=== PATIENT | male | born 1980 | race Two or more races ===

== ENCOUNTER 2022-07-27 09:20 | Outpatient (CLI) | payer OTHER | END 2022-07-27 10:00 | disposition home or self-care (01) | LOC: ASH CLINIC 09:20 | PROVIDERS: ATTEND General Practice | DX: U07.1 COVID-19 (principal) ==

== ENCOUNTER 2022-10-29 11:45 | Inpatient (IN) | payer OTHER ==
[~2022-10-29] VITALS: Ht 170.2 cm; Wt 106.6 kg
[2022-10-29] MEDS ORDERED: RESTORIL30 M1 (12:21)
--- NOTE | 2022-10-29 12:28 | NUR ---
PACIENTE REFIEERE QUE TIENE DOLOR EN TESTICULO LISA DESDE GALILEO. RECIBIO ANTIBIOTICO EN OTRA INSTITUCION.
--- NOTE | 2022-10-29 13:25 | NUR ---
PACIENTE ALERTA Y ORIENTADO EVALUADO POR DRA ULLOA QUIEN ORDENA UMAIR DE MUESTRAS DE LABORATORIO, EXAMEN TESTICULAR, MEDICAMENTO PO. SE ORIENTA PACIENTE SOBRE TRATAMIENTO SE CARLOS MUESTRAS DE SUNSHINE BAJO MEDIDAS ASEPTICAS, SE ADMINISTRAN MEDICAMENTOS EDDA ORDEN MEDICA, SE ASISTE A DRA ULLOA EN EXAMEN TESTICULAR. SE NOTIFICA A PERSONAL DE CENTRO DE IMAGENES SOBRE SONOGRAMA TESTICULAR. SE MANTIENE PACIENTE EN FAST TRACK.
[2022-10-31] MEDS ORDERED: EFFEXOR XR75 MG (11:07)
[2022-10-31] MEDS ORDERED: BUDESONIDE0.5 MG/21 (11:07)
[2022-10-31] MEDS ORDERED: TRAZODONE HCL100 MG (11:07)
[2022-10-31] MEDS ORDERED: LEVALBUTER1.25 MG/3 (11:07)
[2022-11-02] MEDS ORDERED: LEVOFLOXACIN750 MG PO ×2 (12:53→12:55)
[2022-11-02] MEDS ORDERED: INTESTINEX680 M2 PO ×2 (12:53→12:55)
[2022-11-02] MEDS ORDERED: CLONAZEPAM0.5 MG PO (12:54)
[2022-11-02] MEDS ORDERED: RESTORIL15 MG PO (12:54)
== END 2022-11-02 13:38 | disposition home or self-care (01) | DRG 728 ==
LOC: ER 11:45 → SURG 17:58 → SEC-K 17:58 → SURG 19:51
PROVIDERS: ADMIT Internal Medicine; ATTEND Internal Medicine
PROC: BV44ZZZ Ultrasonography of Scrotum (ICD-10-PCS; principal; 2022-10-29)
DX: N45.1 Epididymitis (principal); N50.812 Left testicular pain; E66.8 Other obesity

== ENCOUNTER 2022-11-12 09:38 | Emergency (ER) | payer OTHER ==
[~2022-11-12] VITALS: Ht 170.2 cm; Wt 98.9 kg
[~2022-11-12 09:38] MED LIST: BUDESONIDE0.5 MG/21; CLONAZEPAM0.5 MG PO; EFFEXOR XR75 MG; INTESTINEX680 M2 PO; LEVALBUTER1.25 MG/3; LEVOFLOXACIN750 MG PO; RESTORIL15 MG PO; RESTORIL30 M1; TRAZODONE HCL100 MG
[2022-11-12] MEDS ORDERED: RESTORIL7.5 MG PO (09:42)
[2022-11-12] MEDS ORDERED: PEPCID AC20 MG PO (14:01)
[2022-11-12] MEDS ORDERED: ONDANSETRON ODT8 MG PO (14:01)
[2022-11-12] MEDS ORDERED: METRONIDAZOLE500 MG PO (14:01)
[2022-11-12] MEDS ORDERED: LEVSIN/SL0.125 MG SL (14:02)
== END 2022-11-12 14:13 | disposition home or self-care (01) ==
LOC: ER 09:38
DX: K52.9 Noninfective gastroenteritis and colitis, unspecified (principal); Z20.822 Contact with and (suspected) exposure to COVID-19